=== PATIENT | female | born 1995 | race Caucasian/White ===

== ENCOUNTER 2016-07-09 14:03 | Observation (INO) ==
--- NOTE | 2016-07-09 15:26 | OB/GYN History & Physical ---
Date of Encounter: 07/09/16 Time of Encounter: 15:19 Assessment and Plan (1) with 39 completed weeks gestation Current visit: Yes Status: Acute at 39w 2d gestation. Complicated by choroid plexus cyst per ultrasound which self-resolved. 1. concerns for labor Discussed with the patient the utility of timing contractions. 14:21 initial nursing cervical exam - Cervix closed, thick, firm 15:50 nursing cervical re-examination - Cervix closed, thick, firm; no change. Patient ambulated for 1 hr. 16:50 nursing cervical re-examination - Cervix closed, thick, firm; no change. Patient discharged home. Patient's next appointment is Mon (4 days) with Dr. Duff. 2. nausea No nausea unless she feels the contractions; i.e. no nausea at baseline and no nausea with contractions she does not feel (as evidenced by the monitor). Patient has not been nausea throughout her stay. She is able to maintain PO intake without difficulty; no indication at this time for outpatient antiemetic medications. (2) False labor Current visit: Yes Status: Acute as above History of Present Illness Chief complaint: Labor concern HPI: Ms. Mc is a 21 year old female presents from home with concerns of labor contractions. Onset 02:00-03:00. Patient is at 39w 2d. She has not timed the duration or frequency of her contractions but notes her abdomen get hard at random times during which she has nausea. No vaginal discharge/fluid/ bleeding. Patient also notes back pain, located across her lumber back, intermittent and not always coincident with the contractions she feels, she has not taken acetaminophen, improved with heated car seat. Patient lives 40-45 min from the hospital. She hx: OB: Dr. Duff Last visit 3 days ago - no cervical dilation. hx of choroid plexus cyst reportedly spontaneously resolved. Blood type: A- GBS (-) HbSAg (-) @ 01/01/16 HIV (-) T. Pallidum Ab (-) Rubella IgG (+) Varicella IgG (-) CF 165 (-) N. Gonorrhoeas DNA (-) C. Trachomatis DNA (-) Past Med Surg Social Fam HX - Past Medical History Medical history: no medical history Psychiatric history: anxiety - Past Surgical History Surgical History: no surgical history - Social History Smoking Status: Never smoker Smokeless Tobacco Status: No Alcohol use: none Drug use: none - Family History Mother Hx Family Cancer: Yes Hx Family Medical Disorders: Yes ("gets blood clots") Obstetrical History - Pregnancies : 1 Para: 0 Term: 0 : 0 Ab's: 0 Livin Medications and Allergies Kzc840/Iron Fumarate/FA/Dss [ 19 Tablet] 1 each PO DAILY 07/09/16 [ History] Allergies No Known Allergies Allergy (Verified 02/11/16 16:38) Review of System OB - Constitutional Constitutional ROS IM: headache(s), no anorexia, no fatigue, no fever(s), no lethargy, no malaise, no weakness - Nose, mouth, and throat Nose, mouth and throat: no dizziness - Cardiovascular Cardiovascular: no chest pain, no leg edema - Respiratory Respiratory: no cough, no dyspnea - Gastrointestinal Gastrointestinal: abdominal pain (with contractions), change in stool character (loose bowels), nausea, no belching, no bloating, no dyspepsia, no vomiting - Genitourinary Genitourinary: no difficulty urinating, no dysuria, no pelvic pain, no vaginal discharge - Muscloskeletal Musculoskeletal: myalgias (lumbar), no muscle weakness Exam - Constitutional Constitutional: well developed, well nourished, no acute distress, average body habitus - HEENT HEENT: Normocephaly, Mucus Membranes Moist - Neck Neck exam: normal inspection, trachea midline - Lungs Respiratory exam: CTAB - Cardiovascular Cardiovascular exam: RRR, +S1, +S2 - Abdomen Abdomen: Present: bowel sounds normal, gravid, non tender - Extremities Extremities exam: normal capillary refill, pedal edema (1+) - Comments Comments: MSK: no tenderness to palpation along patient's lumbar spine, lumbar paraspinal muscles, or bilateral iliocostalis muscles. No CVA tenderness. No flank tenderness. Results All other labs normal. - VTE Reasons for not Prescribing Prophylaxis: Treatment not Indicated - Low risk for VTE
[2016-07-09 15:36] LABS: Bilirubin,Urine Negative (Negative); Blood,Urine Negative (Negative); Clarity,Urine Clear (Clear); Color,Urine Yellow (Yellow); Glucose,Urine (UA) Normal (Normal); Ketones,Urine Negative (Negative); Leukocyte Esterase,Urine Negative (Negative); Nitrite,Urine Negative (Negative); PH,Urine 6.5 pH Units (5.0-8.0); Protein,Urine Negative (Neg-Trace); Specific Gravity,Urine 1.012 (1.010-1.025); Urobilinogen,Urine Normal (Normal)
== END 2016-07-09 16:58 | disposition home or self-care (01) ==
LOC: 1NENULAB
PROVIDERS: ADMIT Obstetrics & Gynecology; ATTEND Obstetrics & Gynecology

== ENCOUNTER 2016-07-21 05:55 | Inpatient (IN) ==
[2016-07-21] MEDS ORDERED: Famotidine 20 MG/2 ML VIAL IVP PRN (05:56)
[2016-07-21] MEDS ORDERED: Metoclopramide 10 MG/2 ML VIAL IVP PRN (05:56)
[2016-07-21] MEDS ORDERED: Naloxone 0.4 MG/ML INJ IVP PRN (05:56)
[2016-07-21] MEDS ORDERED: *HR* Nalbuphine 20 MG/ML AMPUL IVP PRN (05:57)
[2016-07-21] MEDS ORDERED: miSOPROStol 100 MCG TABLET PO SCH (06:00)
[2016-07-21] MEDS ORDERED: D5% in 0.45% NACL 1,000 ML IVC SCH (06:00)
[2016-07-21 06:26] LABS: Basophils % 0.5 %; Eosinophils % 0.2 %; Hematocrit 40.9 % (35.3-44.9); Hemoglobin 13.9 g/dL (11.5-15.4); Immature Granulocytes % 1.6 % (0-4); Lymphocytes # 1.6 K/mcL (0.6-4.6); Lymphocytes % 18.7 %; Mean Corpuscular Hemoglobin 33.3 pg (28.0-33.3); Mean Corpuscular Volume 97.8 fL (83.0-100.0); Mean Platelet Volume 10.2 fL (9.4-12.4); Monocytes # 0.9 K/mcL (0.0-1.3); Monocytes % 9.9 %; Neutrophils # 6.1 K/mcL (1.6-8.9); Platelet Count 185 K/mcL (140-400); Red Blood Count 4.18 M/mcL (3.82-4.97); Segmented Neutrophils % 69.1 %
--- NOTE | 2016-07-21 08:11 | OB Labor Progress Note ---
Date of Encounter: 07/21/16 Time of Encounter: 08:08 Labor Progress Note - Subjective Subjective: Patient resting well in bed after receiving cytotec by RN for induction. - Cervix Cervix: 2/70/-2 soft midposition - Heart Tones Heart Tones: 140's moderate variability with 15x15 accels - [place]: contractions every 3-5 minutes lasting 45 to 100 seconds. Moderate to palpation ; uterus palpates soft between contractions. - Interventions Interventions: Carter catheter placed with 30cc sterile water. Patient tolerated well. - Plan Plan: Continue expectant management Plan for vaginal delivery Patient plans for epidural for pain management POC discussed with Dr Duff.
--- NOTE | 2016-07-21 08:20 | OB/GYN History & Physical ---
Date of Encounter: 07/21/16 Time of Encounter: 08:14 Assessment and Plan (1) 41 weeks gestation of Current visit: Yes Status: Acute Admit to labor and delivery Cervical mclean and cytotec induction Routine labor management GBS negative Rh negative Plan for epidural for pain control Vaginal delivery expected POC discussed with Dr Duff. History of Present Illness Chief complaint: Induction of labor HPI: Ms. Mc is a 21 year old female that arrives to labor and delivery for scheduled induction. She is 41 weeks gestation with an insignificant antepartum period. Her blood type is A negative, and she is GBS negative, Rubella immune, Hep B nonreactive, and varicella nonimmune. She is planning on bottle feeding. She began having contractions yesterday and was seen at an ER in [place], [place]. She was transferred to an L&D unit in [place], [place] and discharged to deliver home. She has been irene mildly overnight and arrived here this morning for induction. She is to be admitted. Vaginal delivery is expected. Past Med Surg Social Fam HX - Past Medical History Medical history: no medical history Psychiatric history: anxiety - Past Surgical History Surgical History: no surgical history - Social History Smoking Status: Never smoker Smokeless Tobacco Status: No Alcohol use: none Drug use: none - Family History Mother Adopted: No Family Member Ethnicity: Non- Living Status: Still Living Hx Family Cancer: Yes Hx Family Medical Disorders: Yes (DVT) Obstetrical History - Pregnancies : 1 Para: 0 Term: 0 : 0 Ab's: 0 Livin - History/Complications History/Complications: Antepartum period insignificant. Medications and Allergies [id number]/Iron Fumarate/FA/Dss [ 19 Tablet] 1 each PO DAILY 07/09/16 [ History] Allergies No Known Allergies Allergy (Verified 07/21/16 06:18) Review of System OB All systems PM: reviewed and no additional remarkable complaints except as stated Exam - Constitutional Constitutional: well developed, well nourished, no acute distress, average body habitus - HEENT HEENT: Normocephaly, Mucus Membranes Moist - Neck Neck exam: full ROM, normal inspection - Lungs Respiratory exam: CTAB - Cardiovascular Cardiovascular exam: RRR, +S1, +S2 - Breasts Breast: bilateral: normal - Abdomen Abdomen: Present: bowel sounds normal, gravid, non tender - Extremities Extremities exam: full ROM, normal capillary refill, normal inspection, radial pulses palpable and symetrical Deep Tendon Reflex Grade: 2+ Normal - Vulva Vulva: bilateral: normal - Vagina Vagina: Present: normal moisture - Cervix Dilation: 2 Effacement: 70 Station: -2 - Uterus Uterus exam: Present: normal size, normal contour. Absent: tender - Anus/Rectum Anus/Rectum: Present: normal perianal skin Results Result Diagrams: 07/21/16 06:15 All other labs normal. - VTE Reasons for not Prescribing Prophylaxis: Treatment not Indicated - Low risk for VTE
--- NOTE | 2016-07-21 09:30 | OB Labor Progress Note ---
Date of Encounter: 07/21/16 Time of Encounter: 09:25 Labor Progress Note - Subjective Subjective: Patient resting comfortably in bed. EFM and TOCO on and tracing - Cervix Cervix: 3-4/70/-2 midposition, soft - Heart Tones Heart Tones: 135 moderate variability with 15x15 accels - [place]: contractions every 2-6 minutes; contractions palpate moderate and uterus is soft between contractions. - Interventions Interventions: Discussed risks and benefits of epidural, pitocin, and AROM. Patient declines all at this time. - Plan Plan: Continue routine routine management Plan for vaginal delivery POC discussed with Dr Duff Encouraged use of birthing ball and walking. Patient declines pitocin, epidural, and AROM at this time; Patient to alert nurse after she has discussed and considered options.
--- NOTE | 2016-07-21 12:45 | Anesthesia Evaluation PreOp ---
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: Denies Any Significant HX Other Medical History: Denies Any Significant HX Anesthesia History: No Prior Anesthetic Complications (denies family h/o anesthesia complications), Past Anesthesia (never had any procedure that required GA, RA, or NA) : Yes Test: Positive Alcohol Use: none Drug use: none Medications and Allergies Boz945/Iron Fumarate/FA/Dss [ 19 Tablet] 1 each PO DAILY 07/09/16 [ History] Allergies No Known Allergies Allergy (Verified 07/21/16 06:18) - Meds/Allergy Pre-op Review Medications Reviewed: Yes Allergies Reviewed: Yes Beta Blockers on Current Med List: No Anesthesia Results - Labs 07/21/16 06:15 Anesthesia Exam 135/79, HR 102, RR 18 Height: 1.55 Weight: 75kg NPO (# of Hours): >8hrs (solids) Pain Scale: 3 Pain Scale Used: Numeric (1 - 10) - HEENT Pupil (Motor): Pupils equal Mallampati: I Teeth: Normal Oral Opening: Greater than 3 - NUCLEAR WORKER TECHNICIAN LOC: Oriented NUCLEAR WORKER TECHNICIAN Motor: Normal RUE, Normal LUE, Normal RLE, Normal LLE, Normal Face NUCLEAR WORKER TECHNICIAN Sensory: Normal: RUE, LUE, RLE, LLE, Face - Cardiac Rhythm: Regular Murmur: None - Pulmonary Breath Sounds: bilateral Clear Respiratory Effort: Symmetrical Anesthesia Assess/Plan ASA Score: 2 Modified Jackie Scale for Level of Consciousness: Cooperative, oriented, and tranquil Anesthetic Plan: Regional Autologous Blood: No Monitoring Plan: Standard Monitors Recovery Plan: Other
[2016-07-21] MEDS ORDERED: *HR* FentaNYL (PF) 100 MCG/2 ML VIAL EP ONE (12:48)
[2016-07-21] MEDS ORDERED: Bupivacaine-MPF 0.25% 10 ML VIAL EP ONE (12:48)
[2016-07-21] MEDS ORDERED: *HR* FentaNYL (PF) 100 MCG/2 ML VIAL ONE (12:52)
[2016-07-21] MEDS ORDERED: Bupivacaine-MPF 0.25% 10 ML VIAL ONE (12:52)
[2016-07-21] MEDS ORDERED: Epidural Premix (fent/bupiv) 110 ML EP SCH (13:00)
--- NOTE | 2016-07-21 13:01 | OB Labor Progress Note ---
Date of Encounter: 07/21/16 Time of Encounter: 12:58 Labor Progress Note - Subjective Subjective: Patient resting comfortably in bed. - Cervix Cervix: 3-4/70/-2 midposition soft - Heart Tones Heart Tones: 150's moderate variability 15x15 accels - [place]: every 1.5-5 minutes. Uterus palpates moderate with contractions and soft in between contractions. - Plan Plan: Continue with routine management Expect vaginal delivery Discussed induction options with patient: AROM before epidural if desired, AROM after epidural if desired, IV pitocin titration, cytotec if contractions space out, or watch and wait. Patient elects to watch and wait. Encouraged walking and use of birthing ball. POC discussed with Dr Duff.
[2016-07-21] MEDS ORDERED: Ringers Solution, Lactated 1,000 ML ONE ×2 (14:40→22:14)
--- NOTE | 2016-07-21 16:22 | OB Labor Progress Note ---
Date of Encounter: 07/21/16 Time of Encounter: 16:19 Labor Progress Note - Subjective Subjective: Patient resting in bed. States that she is beginning to feel contractions and that they are uncomfortable. - Cervix Cervix: 470/-1 soft and midposition. Cervix has increased in softness and moved more anterior from previous check. - Heart Tones Heart Tones: 130's moderate variability with 15x15 accels and no decels - [place]: Contractions every 3-4 minutes and 60 seconds in length. Moderate to palpation. Uterus palpates soft between contractions. - Plan Plan: Continue expectant management Expect vaginal delivery Patient planning on epidural if pain becomes uncontrolled Discussed continued induction options with patient; patient elects pitocin per CNM's orders POC discussed with Dr Duff.
[2016-07-21] MEDS ORDERED: Oxytocin 20 units/ LR 1000 mL 20 UNIT/1,000 ML BAG IVC SCH (16:30)
[2016-07-21] MEDS ORDERED: Epidural Premix (fent/bupiv) 110 ML EP ONE (23:46)
--- NOTE | 2016-07-22 00:14 | Anesthesia Procedures ---
Date of Encounter: 07/21/16 Time of Encounter: 23:47 Procedures: Anesthesia - Epidural/Spinal Patient ID/Chart reviewed: Yes Patient examined: Yes OB Eval: Gestational age: 41 weeks OB Eval: : 2 OB Eval: Hx Para: 0 OB Eval: Dilated at (cm): 6 OB Eval: Contractions: Non-stressed pattern Consent Obtained: Yes Supplemental Oxygen: None/Room Air Site Prep: Aseptic Technique, Sterile prep and drape, Povidone-Iodine 1% Patient position: upright Local Anesthetic: Lidocaine 1% Amount of Local Anesthetic used: 3 Touhy Needle Gauge: 18 Touhy Needle Depth (cm): 5 Catheter Depth at Skin (cm): 12 Test Dose (1.5% Lido + Epi): Volume given (mls): 5 (given in 2 equally divided doses over a period of 5 min) Test Dose Result: Negative Loading Dose: 0.25% Marcaine (mls): 5 Loading Dose: Fentanyl (mcg): 100 Loading Dose Administered: Thru Catheter Infusion Med: 0.125% Bupivacaine w/ 2 mcg/ml Fentanyl Infusion Rate (mls/hr): [address]: Tegaderm, Tape Interspace Used: L3-L4 Loss of Resistance (RAKAN): Yes Blood: No CSF: No Paresthesia: No Vitals + FHT's: Please see L&D REDDY July' electronic documentation
[2016-07-22] MEDS ORDERED: Ringers Solution, Lactated 1,000 ML ONE ×3 (00:55→05:42)
[2016-07-22] MEDS ORDERED: Ondansetron 4 MG/2 ML VIAL IVP PRN ×2 (02:39→13:44)
[2016-07-22] MEDS ORDERED: Epidural Premix (fent/bupiv) 110 ML EP ONE (06:03)
[2016-07-22] MEDS ORDERED: *HR* Ropivacaine/PF 0.2% 10 ML AMPUL ONE (08:15)
--- NOTE | 2016-07-22 08:51 | Anesthesia Progress Note ---
Date of Encounter: 07/21/16 Time of Encounter: 08:15 Anesthesia Note - Note Note: 07/22/16 08:49 called to LDR12 for c/o pain 01/31 with contractions to low abd. and hips and back. Has only anterior lip of cervix remaining. Epidural functioning and has not migrated. Aspiration negative gardner CSF or blood. Injected 10 ml 0.2% ropivacaine in 3 divided doses. Patient tolerated well and maternal VS and FHTs remained stable throughout.
[2016-07-22] MEDS ORDERED: Prenatal Vit/FA 1 EACH TABLET PO SCH (09:00)
[2016-07-22] MEDS ORDERED: miSOPROStol 100 MCG TABLET PO STA ×2 (10:46→15:51)
[2016-07-22] MEDS ORDERED: Ibuprofen 600 MG TABLET PO PRN (11:06)
[2016-07-22] MEDS ORDERED: Rho Immune Globulin 1,500 UNIT SYRINGE IM PRN ×2 (11:06→13:44)
[2016-07-22] MEDS ORDERED: Acetaminophen 325 MG TABLET PO PRN ×2 (11:06→13:44)
--- NOTE | 2016-07-22 11:10 | OB/GYN Procedure Note ---
Delivery - Delivery Date: 07/22/16 Provider: Chasidy Calabrese Intrapartum events: none Delivery induction: oxytocin Delivery monitor: external FHT, external uterine, internal uterine Anesthesia: epidural Estimated Blood Loss: 750 (Uterine atony) - Infant (s) Infant A Infant Delivery Date: 07/22/16 Infant Delivery Time: 10:31 Presentation: vertex Position: THOM Route of delivery: Gender: Female Viability: Viable Pounds: 8 Ounces: 2 at 1 minute: 8 at 5 mins: 9 Shoulder Dystocia: not encountered Specimens collected: cord blood Placenta: spontaneous, uterine exploration (No retained products of conception) Cord: nuchal cord (x2), 3 umbilical vessels, nuchal reduced - Repair Episiotomy: none Laceration Description: Vaginal (extend to introitus) - Complications Delivery complications: uterine atony Delivery comments: Patient complete and pushing with epidural anesthesia with spontaneous vaginal delivery of a live female in THOM position weighing 8 lbs. 2 oz. and Apgars of 8 at 1 minute and 9 at 5 minutes. Nuchal cord x2 was reduced on the perineum. was placed on the maternal abdomen. Cord was clamped and cut after pulsation ceased. Cord blood was obtained. Placenta was delivered spontaneous and intact. There was a vaginal laceration approximately 3 cm in length extending to the introitus which was repaired with 3-0 Vicryl in a running locking fashion and then 4-0 Vicryl to reinforce the perineum. The uterus was boggy with aggressive bleeding. The uterus was explored and there were no retained products of conception. Bimanual massage was performed with IV Pitocin running without significant relief. The patient was given 400 mcg of by mouth Cytotec and 400 mcg of rectal Cytotec. Good response achieved. Estimated blood loss 750 mL. - Disposition Mom disposition: stable in LDR disposition: stable in LDR
[2016-07-22] MEDS ORDERED: Oxytocin 20 units/ LR 1000 mL 20 UNIT/1,000 ML BAG IVC SCH ×2 (11:15→13:44)
[2016-07-22 11:27] LABS: Basophils % 0.1 %; Hemoglobin 12.8 g/dL (11.5-15.4); Immature Granulocytes % 0.6 % (0-4); Lymphocytes # 0.8 K/mcL (0.6-4.6); Lymphocytes % 3.9 %; Mean Corpuscular HGB Conc 34.6 g/dL (31.6-35.5); Mean Corpuscular Volume 98.4 fL (83.0-100.0); Mean Platelet Volume 10.6 fL (9.4-12.4); Monocytes # 1.3 K/mcL (0.0-1.3); Monocytes % 6.1 %; Platelet Count 173 K/mcL (140-400); Red Blood Count 3.76 M/mcL (3.82-4.97); Segmented Neutrophils % 89.3 %
[2016-07-22 11:29] LABS: Neutrophils # 18.8 K/mcL (1.6-8.9)
[2016-07-22] MEDS ORDERED: miSOPROStol 100 MCG TABLET PO ONE ×2 (13:00→13:44)
[2016-07-22] MEDS: Ibuprofen 600 MG TABLET PO PRN (14:11)
[2016-07-23 05:56] LABS: Basophils # 0.1 K/mcL (0.0-0.2); Basophils % 0.3 %; Eosinophils % 0.1 %; Immature Granulocytes % 0.5 % (0-4); Lymphocytes # 2.1 K/mcL (0.6-4.6); Lymphocytes % 11.7 %; Mean Corpuscular HGB Conc 34.5 g/dL (31.6-35.5); Mean Corpuscular Hemoglobin 34.2 pg (28.0-33.3); Mean Corpuscular Volume 99.3 fL (83.0-100.0); Mean Platelet Volume 10.9 fL (9.4-12.4); Monocytes # 1.1 K/mcL (0.0-1.3); Neutrophils # 14.4 K/mcL (1.6-8.9); Platelet Count 153 K/mcL (140-400); Red Blood Count 2.92 M/mcL (3.82-4.97); Red Cell Distribution Width 12.3 % (11.5-14.5); Segmented Neutrophils % 81.4 %
[2016-07-23] MEDS: Ibuprofen 600 MG TABLET PO PRN (06:14)
--- NOTE | 2016-07-23 08:42 | Discharge Summary ---
Date of Encounter: 07/23/16 Time of Encounter: 08:42 - Discharge Diagnosis (1) (normal spontaneous vaginal delivery) Priority: Primary Status: Acute - Discharge Medications Prescriptions: Ibuprofen [Motrin] 600 mg PO Q6HR PRN #40 tablet PRN Reason: Cramping Home Medications: Eia902/Iron Fumarate/FA/Dss [ 19 Tablet] 1 each PO DAILY 07/09/16 [ History] Ibuprofen [Motrin] 600 mg PO Q6HR PRN #40 tablet 07/23/16 [Rx] Allergies/Adverse Reactions: Allergies No Known Allergies Allergy (Verified 07/21/16 06:18) Data Procedures and tests throughout hospitalization: Laboratory Tests 07/21/16 07/22/16 07/22/16 06:15 11:10 11:10 WBC 8.8 21.0 H D RBC 4.18 3.76 L Hgb 13.9 12.8 Hct 40.9 37.0 MCV 97.8 98.4 MCH 33.3 34.0 H MCHC 34.0 34.6 RDW 12.0 12.0 Plt Count 185 173 MPV 10.2 10.6 Immature Gran % 1.6 0.6 Seg Neutrophils % 69.1 89.3 Lymphocytes % 18.7 3.9 Monocytes % 9.9 6.1 Eosinophils % 0.2 0.0 Basophils % 0.5 0.1 Neutrophils # 6.1 18.8 H Lymphocytes # 1.6 0.8 Monocytes # 0.9 1.3 Eosinophils # 0.0 0.0 Basophils # 0.0 0.0 Screen NEGATIVE Baby's Blood Type A RH POSITIVE Mother's Blood Type A RH NEGATIVE Rhogam Indicated YES Rhogam Req for Mother 1 07/23/16 05:33 WBC 17.6 H RBC 2.92 L Hgb 10.0 L D Hct 29.0 L MCV 99.3 MCH 34.2 H MCHC 34.5 RDW 12.3 Plt Count 153 MPV 10.9 Immature Gran % 0.5 Seg Neutrophils % 81.4 Lymphocytes % 11.7 Monocytes % 6.0 Eosinophils % 0.1 Basophils % 0.3 Neutrophils # 14.4 H Lymphocytes # 2.1 Monocytes # 1.1 Eosinophils # 0.0 Basophils # 0.1 Screen Baby's Blood Type Mother's Blood Type Rhogam Indicated Rhogam Req for Mother Labs on day of discharge: Labs from last 24 hours 07/23/16 07/22/16 07/22/16 05:33 11:10 11:10 WBC 17.6 H 21.0 H D RBC 2.92 L 3.76 L Hgb 10.0 L D 12.8 Hct 29.0 L 37.0 MCV 99.3 98.4 MCH 34.2 H 34.0 H MCHC 34.5 34.6 RDW 12.3 12.0 Plt Count 153 173 MPV 10.9 10.6 Immature Gran % 0.5 0.6 Seg Neutrophils % 81.4 89.3 Lymphocytes % 11.7 3.9 Monocytes % 6.0 6.1 Eosinophils % 0.1 0.0 Basophils % 0.3 0.1 Neutrophils # 14.4 H 18.8 H Lymphocytes # 2.1 0.8 Monocytes # 1.1 1.3 Eosinophils # 0.0 0.0 Basophils # 0.1 0.0 Screen NEGATIVE Baby's Blood Type A RH POSITIVE Mother's Blood Type A RH NEGATIVE Rhogam Indicated YES Rhogam Req for Mother 1 - Impressions Doing ok, appropriate lochia, c/o urinary incontinence. 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 Attestation: Total time spent providing and/or coordinating discharge services: Exam - Constitutional Vitals: Temp Pulse Resp BP Pulse Ox 98 F 91 20 97/61 99 07/23/16 07:47 07/23/16 07:47 07/23/16 07:47 07/23/16 07:47 07/23/16 07:47 General appearance IM: A&O X 3 - Respiratory Respiratory exam: Present: CTAB - Cardiovascular Cardiovascular exam IM: Present: RRR - GI/Abdominal GI/Abdominal exam IM: normal bowel sounds - Uterus Position: 2 Fingers Below Umbilicus - Extremities Exam Extremities exam IM: Present: full ROM - Neurological Exam Neurological exam: oriented X3 - VTE Reasons for not Prescribing Prophylaxis: Treatment not Indicated - Low risk for VTE
[2016-07-23] MEDS ORDERED: Prenatal Vit/FA 1 EACH TABLET PO SCH ×2 (09:00)
[2016-07-23 16:28] VITALS: BP 109/66
== END 2016-07-23 16:45 | disposition home or self-care (01) | DRG 542 ==
LOC: 1NENULAB 05:55 → 1NENUOBS 07-22 13:43

== ENCOUNTER → 2017-12-04 20:20 | Observation (INO) ==
[2017-12-04 18:44] LABS: Amphetamine Screen,Urine Negative ng/mL (Cutoff=1000); Barbiturate Screen,Urine Negative ng/mL (Cutoff=200); Benzodiazepines Screen,Urine Negative ng/mL (Cutoff=200); Cannabinoid Screen,Urine Negative ng/mL (Cutoff = 50); Cocaine Screen,Urine Negative ng/mL (Cutoff= 300); Opiate Screen,Urine Negative ng/mL (Cutoff=300); Phencyclidine Screen,Urine Negative ng/mL (Cutoff=25)
--- NOTE | 2017-12-04 19:23 | OB/GYN Progress Note ---
Date of Encounter: 12/04/17 Time of Encounter: 19:19 - Assessment and Plan (1) 27 weeks gestation of Current Visit: Yes Status: Acute KB negative NST - reactive Discharge home with PTL and bleeding precautions along with kick counts Follow up with routine care and PRN. (2) Abdominal trauma Current Visit: Yes Status: Acute Qualifiers: Encounter type: initial encounter Qualified Code(s): S39.91XA - Unspecified injury of abdomen, initial encounter Subjective - Subjective Principal diagnosis: Abdominal trauma Interval history: Ms Mc is a at 27 weeks 0 days that presents to triage from the office for monitoring and a KB. Her daughter hit her hard in the abdomen last night and her placenta is located anteriorly. Her blood type is A-. She states positive movement. She denies cramping, contractions, vaginal bleeding, vaginal discharge, headache, vision changes, and epigastric pain. Antepartum ROS: movement normal, no vaginal bleeding, no contractions Objective - Vital Signs Vital Signs: Intake and Output 12/04/17 12/04/17 12/04/17 07:59 15:59 23:59 Other: Weight 73.028 kg Patient Weight 12/04/17 23:59 Weight 73.028 kg - Exam FHR: auscultation normal, category 1 FHR comments: FHTs 150 baseline Abdomen: Present: normal appearance, soft, gravid Uterus: Present: normal. Absent: firm, tenderness
== END | disposition home or self-care (01) ==
LOC: 1NENULAB
PROVIDERS: ADMIT Advanced Practice Midwife; ATTEND Advanced Practice Midwife

== ENCOUNTER 2018-02-22 08:27 | Observation (INO) ==
--- NOTE | 2018-02-22 09:22 | OB/GYN Progress Note ---
Date of Encounter: 02/22/18 Time of Encounter: 09:19 - Assessment and Plan (1) 38 weeks gestation of Current Visit: Yes Status: Acute Encouraged patient to restart zoloft and follow up with Dr Duff Rx for vistaril PRN anxiety NST reactive Discharge home with labor precautions and change in mental status precautions Follow up with Dr duff as scheduled and PRN (2) Anxiety Current Visit: Yes Status: Acute (3) NST (non-stress test) reactive Current Visit: Yes Status: Acute Subjective - Subjective Principal diagnosis: Difficulty catching breath Interval history: Ms Mc is a at 38 weeks and 3 days that presents to triage with c/o difficulty catching her breath. She states this is not the first time this has happened during her . She does have a significant history of anxiety and depression with this and stopped taking her zoloft roughly one week ago per her . She states positive movement. She denies headaches, vision changes, epigastric pain, leaking of fluid/vaginal bleeding, and regular contractions. She is seen for her care by Dr Duff. She denies SI/HI and making suicide plans. She states her anxiety has worsened significantly since stopping her zoloft which she states she stopped due to not wanting her baby to go through withdraw after delivery; discussed pros/cons of zoloft use in . Antepartum ROS: movement normal, no loss of fluid, no vaginal bleeding, no contractions Objective - Exam FHR: auscultation normal, category 1 FHR comments: Irregular contractions; category I tracing Baseline 140 with 15x15 accels moderate variability and no decels. Auscultation: bilateral: normal Abdomen: Present: normal appearance, soft, gravid Uterus: Present: normal. Absent: firm, tenderness
[2018-02-22 10:07] LABS: Amphetamine Screen,Urine Negative ng/mL (Cutoff=1000); Barbiturate Screen,Urine Negative ng/mL (Cutoff=200); Benzodiazepines Screen,Urine Negative ng/mL (Cutoff=200); Cannabinoid Screen,Urine Negative ng/mL (Cutoff = 50); Cocaine Screen,Urine Negative ng/mL (Cutoff= 300); Opiate Screen,Urine Negative ng/mL (Cutoff=300); Phencyclidine Screen,Urine Negative ng/mL (Cutoff=25)
== END 2018-02-22 10:00 | disposition home or self-care (01) ==
LOC: 1NENULAB
PROVIDERS: ADMIT Advanced Practice Midwife; ATTEND Advanced Practice Midwife

== ENCOUNTER 2018-03-02 09:41 | Inpatient (IN) ==
[2018-03-02] MEDS ORDERED: Famotidine 20 MG/2 ML VIAL IVP PRN (10:14)
[2018-03-02] MEDS ORDERED: Ondansetron 4 MG/2 ML VIAL IVP PRN (10:14)
[2018-03-02] MEDS ORDERED: *HR* Nalbuphine 10 MG/ML AMPUL IVP PRN (10:14)
[2018-03-02] MEDS ORDERED: Naloxone 0.4 MG/ML INJ IVP PRN (10:14)
[2018-03-02] MEDS ORDERED: D5% in 0.45% NACL 1,000 ML IVC SCH (10:30)
[2018-03-02 10:55] LABS: Basophils % 0.3 %; Eosinophils # 0.1 K/mcL (0.0-0.6); Eosinophils % 0.5 %; Hemoglobin 12.8 g/dL (11.5-15.4); Immature Granulocytes % 0.8 % (0-4); Lymphocytes # 2.2 K/mcL (0.6-4.6); Lymphocytes % 19.6 %; Mean Corpuscular HGB Conc 33.7 g/dL (31.6-35.5); Mean Corpuscular Hemoglobin 32.2 pg (28.0-33.3); Mean Corpuscular Volume 95.5 fL (83.0-100.0); Mean Platelet Volume 10.5 fL (9.4-12.4); Monocytes # 0.6 K/mcL (0.0-1.3); Monocytes % 5.1 %; Neutrophils # 8.2 K/mcL (1.6-8.9); Platelet Count 190 K/mcL (140-400); Red Blood Count 3.98 M/mcL (3.82-4.97); Red Cell Distribution Width 12.1 % (11.5-14.5); Segmented Neutrophils % 73.7 %
[2018-03-02] MEDS ORDERED: Ringers Solution, Lactated 1,000 ML ONE (11:35)
[2018-03-02] MEDS ORDERED: miSOPROStol 100 MCG TABLET PO ONE (12:00)
[2018-03-02 12:54] LABS: Amphetamine Screen,Urine Negative ng/mL (Cutoff=1000); Barbiturate Screen,Urine Negative ng/mL (Cutoff=200); Benzodiazepines Screen,Urine Negative ng/mL (Cutoff=200); Cannabinoid Screen,Urine Negative ng/mL (Cutoff = 50); Cocaine Screen,Urine Negative ng/mL (Cutoff= 300); Opiate Screen,Urine Negative ng/mL (Cutoff=300); Phencyclidine Screen,Urine Negative ng/mL (Cutoff=25)
--- NOTE | 2018-03-02 14:53 | OB Labor Progress Note ---
Date of Encounter: 03/02/18 Time of Encounter: 14:25 Labor Progress Note - Subjective Subjective: Patient resting in bed without complaint at this time. Undecided about epidural - Vital Signs Vital Signs: WNL Afebrile - Cervix Cervix: 4/80/-2 - Heart Tones Heart Tones: 140 bpm, moderate variability, +15x15 accels, no decels. - [place]: 2-3 minutes - Interventions Interventions: SVE AROM for moderate amount clear fluid. - Plan Plan: Continue labor induction Begin Pitocin if needed Patient may have IV pain medication and/or epidural if when she desires. Anticipate
[2018-03-02] MEDS ORDERED: Oxytocin 20 units/ LR 1000 mL 20 UNIT/1,000 ML BAG IVC SCH ×2 (15:00→22:20)
[2018-03-02] MEDS ORDERED: Ringers Solution, Lactated 1,000 ML IVC SCH (15:00)
--- NOTE | 2018-03-02 15:33 | OB/GYN History & Physical ---
Date of Encounter: 03/02/18 Time of Encounter: 15:19 Assessment and Plan (1) with 39 completed weeks gestation Current visit: Yes Status: Acute 22 y/o at 39 weeks 4 days gestation Admit to labor and delivery GBS negative Varicella non immune Blood type A- Epidural if desired for pain control AROM Augmentation if needed Anticipate vaginal delivery Dr. Abrams tool liaison. (2) NST (non-stress test) reactive Current visit: Yes Status: Acute NST reactive FHR 135 Moderate variability, +15 by 15 accelerations No decels History of Present Illness Chief complaint: Induction of labor at 39 weeks and 4 days gestation HPI: Ms. Mc is a 22 year old female presenting for induction of labor. Follows with Dr. Duff. She is and currently at 39 weeks and 4 days gestational age. She has had an unremarkable course. Her previous labor and delivery with last was complicated by uterine atony and hemorrhage that responded to cytotec. Past medical history of major depression currently on zoloft. She admits to good movement. She denies leakage of fluid, vaginal bleeding or contractions. Denies headache, dizziness, vision changes, fever, chills, chest pain, shortness of breath, epigastric pain, RUQ pain, dysuria, edema or calf pain. Blood type A- GBS negative HIV negative T pallidum negative Rubella immune Varicella nonimmune Hepatitis B surface antigen unknown, will draw during this admission Past Med Surg Social Fam HX - Past Medical History Medical history: no medical history Additional medical history: subchorionic hematoma, small choroid plexus ( resolved 04/14), very faint echogenic focus left ventricle Psychiatric history: anxiety, depression (on zoloft) - Past Surgical History Surgical History: no surgical history - Social History Smoking Status: Never smoker Smokeless Tobacco Status: No Alcohol use: none Drug use: none Recent Out of Country Travel Within the Last 8 Weeks: No Exposure or Possible Exposure to Illness During Travel: No - Family History Mother Adopted: No Family Member Ethnicity: Non- Living Status: Still Living Hx Family Cardiac Disorders: No Hx Family Respiratory Disorders: No Hx Family Cancer: Yes (cervical) Hx Family GI Disorders: No Hx Family Endocrine Disorder: No Hx Family Neuromuscular Disorders: No Hx Family Neurologic Disorders: No Hx Family HEENT Disorders: No Hx Family Autoimmune Disorders: No Obstetrical History - Pregnancies : 3 Para: 1 Term: 1 : 0 Ab's: 1 Livin - History/Complications History/Complications: 1 had spontaneous 2 had complicated by uterine atony with hemorrhage that responded to cytotec Medications and Allergies Sertraline [Zoloft] 50 mg PO DAILY 03/02/18 [History] Allergy/AdvReac Type Severity Reaction Status Date / Time No Known Allergies Allergy Verified 07/21/16 06:18 Review of System OB All systems PM: reviewed and no additional remarkable complaints except as stated Exam - Constitutional Constitutional: well developed, well nourished, no acute distress, average body habitus - HEENT HEENT: Normocephaly, Mucus Membranes Moist - Neck Neck exam: trachea midline - Lungs Respiratory exam: CTAB - Cardiovascular Cardiovascular exam: RRR, +S1, +S2 - Abdomen Abdomen: Present: bowel sounds normal, gravid, non tender - Extremities Extremities exam: normal inspection, pedal edema Deep Tendon Reflex Grade: 2+ Normal - Vagina Vagina: Present: normal moisture - Cervix Dilation: 4 Effacement: 80 Station: -2 - Uterus Uterus exam: Present: normal size, normal contour Results Result Diagrams: 03/02/18 10:46 All other labs normal. - VTE Reasons for not Prescribing Prophylaxis: Treatment not Indicated - Low risk for VTE
[2018-03-02] MEDS ORDERED: EPHEDrine 50 MG/ML VIAL IVP PRN (16:26)
[2018-03-02] MEDS ORDERED: Ringers Solution, Lactated 500 ML IVC ONE (16:26)
[2018-03-02] MEDS ORDERED: Epidural Premix (fent/bupiv) 110 ML EP SCH (16:30)
[2018-03-02] MEDS ORDERED: Lidocaine -MPF 1% 5 ML AMPUL ONE (16:58)
--- NOTE | 2018-03-02 17:25 | Anesthesia Evaluation PreOp ---
Date of Encounter: 03/02/18 Time of Encounter: 17:24 - Past History Planned Operation: STEVEN Cardiac History: Denies any Significant Hx Pulmonary History: Denies Any Significant HX LACE BURN OUT TENDER History: Denies Any Significant HX Other Medical History: Denies Any Significant HX Anesthesia History: No Prior Anesthetic Complications, Past Anesthesia Alcohol Use: none Drug use: none Medications and Allergies Sertraline [Zoloft] 50 mg PO DAILY 03/02/18 [History] Allergy/AdvReac Type Severity Reaction Status Date / Time No Known Allergies Allergy Verified 07/21/16 06:18 - Meds/Allergy Pre-op Review Medications Reviewed: Yes Allergies Reviewed: Yes Beta Blockers on Current Med List: No Anesthesia Results - Labs 03/02/18 10:46 Anesthesia Exam O2 Sat Height 1.55 m Weight 81.8 kg NPO (# of Hours): 4 Pain Scale: 10 Pain Scale Used: Numeric (1 - 10) - HEENT Pupil (Motor): Pupils equal Mallampati: II Teeth: Normal Oral Opening: Greater than 3 - LACE BURN OUT TENDER LOC: Oriented LACE BURN OUT TENDER Motor: Normal RUE, Normal LUE, Normal RLE, Normal LLE, Normal Face LACE BURN OUT TENDER Sensory: Normal: RUE, LUE, RLE, LLE, Face - Cardiac Rhythm: Regular Murmur: None JVD: No Carotid Bruit: No - Pulmonary Breath Sounds: bilateral Clear Respiratory Effort: Symmetrical Anesthesia Assess/Plan ASA Score: 2 Level of consciousness: Cooperative, Oriented Anesthetic Plan: General (plan b), Epidural (plan a) Autologous Blood: Yes Monitoring Plan: Standard Monitors Recovery Plan: PACU
--- NOTE | 2018-03-02 17:27 | Anesthesia Procedures ---
Addendum entered and electronically signed by Jaylan Marcial CRNA 03/03/18 00:19: Delivery Date: 03/02/18 Infant Delivery Time: 19:41 Original Note: Date of Encounter: 03/02/18 Time of Encounter: 17:25 Procedures: Anesthesia - Epidural/Spinal Patient ID/Chart reviewed: Yes Patient examined: Yes OB Eval: Gestational age: 39.4 OB Eval: : 3 OB Eval: Hx Para: 1 OB Eval: Dilated at (cm): 5 OB Eval: Contractions: Non-stressed pattern Consent Obtained: Yes Supplemental Oxygen: None/Room Air Site Prep: Aseptic Technique, Sterile prep and drape, Povidone-Iodine 1% Patient position: upright Local Anesthetic: Lidocaine 1% Amount of Local Anesthetic used: 3 Touhy Needle Gauge: 18 Touhy Needle Depth (cm): 8 Catheter Depth at Skin (cm): 20 Test Dose (1.5% Lido + Epi): Volume given (mls): 5 Test Dose Result: Negative Loading Dose: Other: 10mls of epidural pharm bag premix solution Loading Dose Administered: Thru Catheter Infusion Med: 0.125% Bupivacaine w/ 2 mcg/ml Fentanyl Infusion Rate (mls/hr): 14 ([id number]) Catheter Secured in Place: Tegaderm, Tape Interspace Used: L4-L5 Loss of Resistance (RAKAN): Yes Blood: No CSF: No Paresthesia: No Procedure: pt tolerated procedure well. no complications. vss. fhr stable.
--- NOTE | 2018-03-02 21:17 | OB/GYN Procedure Note ---
Delivery - Delivery Date: 03/02/18 Provider: Eliezer Abrams Intrapartum events: none Delivery induction: AROM Delivery augmentation: pitocin - (s) Infant A Delivery Date: 03/02/18 Infant Delivery Time: 19:41 Presentation: vertex Position: THOM Gender: Female Viability: Viable Weight Gram: 3785 kg at 1 minute: 8 at 5 mins: 9 Shoulder Dystocia: not encountered Specimens collected: cord blood Placenta: spontaneous Cord: 3 umbilical vessels - Repair Laceration Description: Perineal - 2nd Degree - Complications Delivery complications: none - Disposition Mom disposition: stable in LDR [place] disposition: stable in LDR - Comments Comments: Patient is status post normal spontaneous vaginal delivery of liveborn female infant weighing 8 lbs. 6 oz. with Apgars of 8 at 1 minute and 9 at 5 minutes there was a second-degree laceration was repaired with 3-0 Vicryl under epidural anesthesia with contrast delivered normal placenta with three-vessel cord. Estimated blood loss was 100mL. Mother and recovered in labor and delivery room.
[2018-03-02] MEDS ORDERED: Acetaminophen 325 MG TABLET PO PRN (22:20)
[2018-03-02] MEDS ORDERED: Lanolin 7 G OINT...G. TP PRN (22:20)
[2018-03-02] MEDS: Ibuprofen 600 MG TABLET PO PRN (23:09)
[2018-03-02] MEDS: Benzocaine/Menthol 56 GM AEROSOL SPRAY TP PRN (23:10)
--- NOTE | 2018-03-03 08:50 | OB/GYN Progress Note ---
Date of Encounter: 03/03/18 Time of Encounter: 08:47 - Assessment and Plan (1) Vaginal delivery Current Visit: Yes Status: Acute Continue routine care Ice to perineum when necessary Sitz baths when necessary Dermoplast to perineum when necessary Anticipate discharge to home tomorrow (2) Type A blood, Rh negative Current Visit: Yes Status: Acute also Rh-: No rhogam indicated Subjective - Subjective Principal diagnosis: s/p Interval history: Feeling well. Out of bed without dizziness. Some perineal discomfort-using ice pack. Cramping minimal, using ibuprofen. Bottlefeeding every 2-3 hours. Some nipple soreness. Voiding without difficulty. Passing flatus, no BM yet. Tolerating regular diet. Patient reports: appetite normal, voiding normally, pain well controlled, ambulating normally : doing well, bottle feeding Objective - Latest Vital Signs Latest vital signs: Vital Signs Temp Pulse Resp BP Pulse Ox 03/03/18 07:57 97.9 F 77 14 97/54 99 03/03/18 03:00 98.1 F 72 20 99/60 97 03/03/18 00:30 98 F 78 20 108/64 98 03/02/18 23:25 97.8 F 85 16 109/63 97 03/02/18 22:25 97.9 F 75 16 109/59 98 Intake and Output 03/02/18 03/03/18 03/03/18 23:59 07:59 15:59 Intake Total 1000 / 1000 Output Total 800 / 800 1150 / 1150 Balance -800 / -800 -150 / -150 Intake: Oral 0 / 0 Other 1000 / 1000 Output: Urine 800 / 800 1150 / 1150 Other: Weight 80.1 kg - Exam Lungs: bilateral: normal Chest: Normal S1, Normal S2 Extremities: Present: normal Abdomen: Present: normal appearance, soft Uterus: Present: firm Uterus Position: 2 Fingers Below Umbilicus, Midline - Labs Labs: Laboratory Results - last 24 hr 03/02/18 03/02/18 03/02/18 10:46 12:38 15:32 WBC 11.1 RBC 3.98 Hgb 12.8 Hct 38.0 MCV 95.5 MCH 32.2 MCHC 33.7 RDW 12.1 Plt Count 190 MPV 10.5 Immature Gran % 0.8 Seg Neutrophils % 73.7 Lymphocytes % 19.6 Monocytes % 5.1 Eosinophils % 0.5 Basophils % 0.3 Neutrophils # 8.2 Lymphocytes # 2.2 Monocytes # 0.6 Eosinophils # 0.1 Basophils # 0.0 Urine Opiates Screen Negative Ur Barbiturates Screen Negative Ur Phencyclidine Scrn Negative Ur Amphetamines Screen Negative U Benzodiazepines Scrn Negative Urine Cocaine Screen Negative U Marijuana (THC) Screen Negative Ur Drug Screen Interp See Below Hep Bs Antigen Nonreactive Baby's Blood Type Mother's Blood Type Rhogam Indicated 03/02/18 20:18 WBC RBC Hgb Hct MCV MCH MCHC RDW Plt Count MPV Immature Gran % Seg Neutrophils % Lymphocytes % Monocytes % Eosinophils % Basophils % Neutrophils # Lymphocytes # Monocytes # Eosinophils # Basophils # Urine Opiates Screen Ur Barbiturates Screen Ur Phencyclidine Scrn Ur Amphetamines Screen U Benzodiazepines Scrn Urine Cocaine Screen U Marijuana (THC) Screen Ur Drug Screen Interp Hep Bs Antigen Baby's Blood Type A RH NEGATIVE Mother's Blood Type A RH NEGATIVE Rhogam Indicated NO
[2018-03-03] MEDS: Prenatal Vit/FA 1 EACH TABLET PO SCH (08:52)
[2018-03-03] MEDS: Ibuprofen 600 MG TABLET PO PRN (16:46)
[2018-03-04 07:52] VITALS: BP 97/61
[2018-03-04] MEDS: Prenatal Vit/FA 1 EACH TABLET PO SCH (08:22)
[2018-03-04] MEDS: Benzocaine/Menthol 56 GM AEROSOL SPRAY TP PRN (08:23)
--- NOTE | 2018-03-04 08:58 | Discharge Summary ---
Date of Encounter: 03/04/18 Time of Encounter: 08:53 - Discharge Diagnosis (1) Second degree perineal laceration during delivery Priority: Secondary Status: Acute Comments: Patient states Motrin is controlling her pain. Ice packs as needed Witch benjie pads and Dermoplast spray as needed. (2) Vaginal delivery Priority: Primary Status: Acute Comments: Meeting day 2 milestones. Pain well-controlled with Motrin. Tolerating regular diet, voiding without difficulty, positive bowel movement since delivery. Discharge home today. (3) Type A blood, Rh negative Priority: Secondary Status: Acute Comments: a negative no rhogam indicated. (4) Yeast vaginitis Priority: Secondary Status: Acute Comments: Patient was diagnosed with yeast infection on 02/27. Was unable to complete treatment due to labor induction. Requesting Diflucan be sent to her pharmacy - Discharge Medications Prescriptions: Ibuprofen [Motrin] 600 mg PO Q6HR PRN #60 tablet PRN Reason: Cramping Fluconazole [Diflucan] 150 mg PO ONCE #1 tablet Home Medications: Sertraline [Zoloft] 50 mg PO DAILY 03/02/18 [History] Acetaminophen [Tylenol] 650 mg PO Q6HR PRN tablet 03/04/18 [Rx] Benzocaine/Menthol [place] [Dermoplast [place]] 1 appl TP QID PRN aerosol 03/04/18 [Rx] Docusate [Colace] 100 mg PO BID capsule 03/04/18 [Rx] Fluconazole [Diflucan] 150 mg PO ONCE #1 tablet 03/04/18 [Rx] Ibuprofen [Motrin] 600 mg PO Q6HR PRN #60 tablet 03/04/18 [Rx] Vit/FA 1 each PO DAILY tablet 03/04/18 [Rx] Allergies/Adverse Reactions: Allergy/AdvReac Type Severity Reaction Status Date / Time No Known Allergies Allergy Verified 07/21/16 06:18 Data Procedures and tests throughout hospitalization: Laboratory Tests 03/02/18 03/02/18 03/02/18 10:46 12:38 15:32 WBC 11.1 RBC 3.98 Hgb 12.8 Hct 38.0 MCV 95.5 MCH 32.2 MCHC 33.7 RDW 12.1 Plt Count 190 MPV 10.5 Immature Gran % 0.8 Seg Neutrophils % 73.7 Lymphocytes % 19.6 Monocytes % 5.1 Eosinophils % 0.5 Basophils % 0.3 Neutrophils # 8.2 Lymphocytes # 2.2 Monocytes # 0.6 Eosinophils # 0.1 Basophils # 0.0 Urine Opiates Screen Negative Ur Barbiturates Screen Negative Ur Phencyclidine Scrn Negative Ur Amphetamines Screen Negative U Benzodiazepines Scrn Negative Urine Cocaine Screen Negative U Marijuana (THC) Screen Negative Ur Drug Screen Interp See Below Hep Bs Antigen Nonreactive Baby's Blood Type Mother's Blood Type Rhogam Indicated 03/02/18 20:18 WBC RBC Hgb Hct MCV MCH MCHC RDW Plt Count MPV Immature Gran % Seg Neutrophils % Lymphocytes % Monocytes % Eosinophils % Basophils % Neutrophils # Lymphocytes # Monocytes # Eosinophils # Basophils # Urine Opiates Screen Ur Barbiturates Screen Ur Phencyclidine Scrn Ur Amphetamines Screen U Benzodiazepines Scrn Urine Cocaine Screen U Marijuana (THC) Screen Ur Drug Screen Interp Hep Bs Antigen Baby's Blood Type A RH NEGATIVE Mother's Blood Type A RH NEGATIVE Rhogam Indicated NO Date of admission: 03/02/18 09:41 Primary care physician: PCP NONE Consults: 03/02/18 22:20 Consult to Patient Registration Manager [CONS] Routine Comment: Vaginal delivery, consult needed Discharging clinician: Ilsa Huston Anticipated date of discharge: 03/04/18 - Patient Status Disposition: Home, Self-Care Condition: Good Functional capacity at discharge: independent ambulation Overall status at discharge: patient is progressing back to baseline - Discharge Instructions Follow Up With: NONE,PCP [Primary Care Provider] - - Diet and Activity Activity: resume usual activities as tolerated Diet: regular diet Hospital Course Reason for admission: induction of labor Delivery: Episiotomy: none Laceration: 2nd degree Other procedures: none complications: none Discharge diagnosis: IUP at term delivered baby: female Hospital course: Patient meeting day 2 milestones. Tolerating regular diet, pain well-controlled with Motrin, positive bowel movement, voiding without difficulty. Requesting discharge home today. To follow-up in 4 weeks. Delivery Date: 03/02/18 Provider: Eliezer Abrams Intrapartum events: none Delivery induction: AROM Delivery augmentation: pitocin - Infant (s) Infant A Delivery Date: 03/02/18 Delivery Time: 19:41 Presentation: vertex Position: THOM Gender: Female Viability: Viable Weight Gram: 3785 kg at 1 minute: 8 at 5 mins: 9 Shoulder Dystocia: not encountered Specimens collected: cord blood Placenta: spontaneous Cord: 3 umbilical vessels - Repair Laceration Description: Perineal - 2nd Degree - Complications Delivery complications: none - Disposition Mom disposition: stable in LDR [place] disposition: stable in LDR Time Attestation: Total time spent providing and/or coordinating discharge services: Time Spent: Less than 30 minutes Exam - Constitutional Vitals: Temp Pulse Resp BP Pulse Ox 98 F 64 14 97/61 100 03/04/18 07:50 03/04/18 07:50 03/04/18 07:50 03/04/18 07:50 03/04/18 07:50 General appearance IM: A&O X 3, pleasant, no acute distress, answers questions appropriately - Respiratory Respiratory exam: Present: CTAB - Cardiovascular Cardiovascular exam IM: Present: RRR, +S1, +S2 - GI/Abdominal GI/Abdominal exam IM: normal bowel sounds - Rectal Rectal exam: deferred - Uterine Tone: Firm Uterus Position: 1 Finger Below Umbilicus - Extremities Exam Extremities exam IM: Present: full ROM, normal capillary refill, normal inspection - Neurological Exam Neurological exam: alert, normal gait, oriented X3
== END 2018-03-04 13:30 | disposition home or self-care (01) | DRG 560 ==
LOC: 1NENULAB 09:41 → 1NENUOBS 22:18
PROVIDERS: ADMIT Obstetrics & Gynecology; ATTEND Obstetrics & Gynecology

== ENCOUNTER → 2020-04-16 17:45 | Observation (INO) ==
[2020-04-16 17:15] LABS: Bilirubin,Urine Negative (Negative); Blood,Urine Negative (Negative); Clarity,Urine Clear (Clear); Color,Urine Colorless (Yellow); Glucose,Urine (UA) Normal (Normal); Ketones,Urine Negative (Negative); Leukocyte Esterase,Urine Negative (Negative); Nitrite,Urine Negative (Negative); PH,Urine 6.5 pH Units (5.0-8.0); Protein,Urine Negative (Neg-Trace); Specific Gravity,Urine 1.006 (1.010-1.025); Urobilinogen,Urine Normal (Normal)
[2020-04-16 18:08] LABS: Candida DNA Not Detected (Not Detect); Gardnerella DNA Not Detected (Not Detect); Trichomonas DNA Not Detected (Not Detect)
== END | disposition home or self-care (01) ==
LOC: 1NENULAB
PROVIDERS: ADMIT Advanced Practice Midwife; ATTEND Advanced Practice Midwife

== ENCOUNTER → 2020-04-30 03:32 | Observation (INO) | END | disposition home or self-care (01) | LOC: 1NENULAB | PROVIDERS: ADMIT Registered Nurse; ATTEND Registered Nurse ==

== ENCOUNTER 2020-05-30 06:14 | Inpatient (IN) ==
[2020-05-30] MEDS ORDERED: miSOPROStoL 25 MCG TABLET PO PRN (06:26)
[2020-05-30] MEDS ORDERED: Famotidine 20 MG/2 ML VIAL IVP PRN (06:26)
[2020-05-30] MEDS ORDERED: Lidocaine 1% 20 ML MDV INFILT PRN (06:26)
[2020-05-30] MEDS ORDERED: Metoclopramide 10 MG/2 ML VIAL IVP PRN (06:26)
[2020-05-30] MEDS ORDERED: Naloxone 0.4 MG/ML INJ IVP PRN (06:26)
[2020-05-30] MEDS ORDERED: *HR* Nalbuphine 10 MG/ML AMPUL IV PRN (06:26)
[2020-05-30] MEDS ORDERED: Ringers Solution, Lactated 1,000 ML IVC SCH (06:30)
[2020-05-30 07:33] LABS: Basophils % 0.3 %; Eosinophils % 0.3 %; Hematocrit 40.2 % (35.3-44.9); Hemoglobin 13.5 g/dL (11.5-15.4); Immature Granulocytes % 1.1 % (0-4); Lymphocytes # 2.4 K/mcL (0.6-4.6); Lymphocytes % 26.2 %; Mean Corpuscular HGB Conc 33.6 g/dL (31.6-35.5); Mean Corpuscular Hemoglobin 33.6 pg (28.0-33.3); Mean Platelet Volume 10.3 fL (9.4-12.4); Monocytes # 0.7 K/mcL (0.0-1.3); Monocytes % 7.2 %; Neutrophils # 5.9 K/mcL (1.6-8.9); Platelet Count 186 K/mcL (140-400); Red Blood Count 4.02 M/mcL (3.82-4.97); Red Cell Distribution Width 12.6 % (11.5-14.5); Segmented Neutrophils % 64.9 %; White Blood Count 9.1 K/mcL (4.3-11.1)
[2020-05-30 11:03] LABS: Amphetamine Screen,Urine Negative ng/mL (Cutoff=1000); Barbiturate Screen,Urine Negative ng/mL (Cutoff=200); Benzodiazepines Screen,Urine Negative ng/mL (Cutoff=200); Cannabinoid Screen,Urine Negative ng/mL (Cutoff = 50); Cocaine Screen,Urine Negative ng/mL (Cutoff= 300); Opiate Screen,Urine Negative ng/mL (Cutoff=300); Phencyclidine Screen,Urine Negative ng/mL (Cutoff=25)
[2020-05-30 11:07] LABS: Adenovirus Not Detected (Not Detect); Coronavirus 229E Not Detected (Not Detect); Coronavirus HKU1 Not Detected (Not Detect); Coronavirus NL63 Not Detected (Not Detect); Coronavirus OC43 Not Detected (Not Detect); Human Metapneumovirus Not Detected (Not Detect); Human Rhinovirus/Enterovirus Not Detected (Not Detect); SARS-CoV-2 Not Detected (Not Detect)
[2020-05-30 11:08] LABS: Bordetella Pertussis Not Detected (Not Detect); Chlamydophila pneumoniae Not Detected (Not Detect); Influenza A Subtype 2009 H1 Not Detected (Not Detect); Influenza B Not Detected (Not Detect); Mycoplasma pneumoniae Not Detected (Not Detect); Parainfluenza Virus 1 Not Detected (Not Detect); Parainfluenza Virus 2 Not Detected (Not Detect); Parainfluenza Virus 3 Not Detected (Not Detect); Parainfluenza Virus 4 Not Detected (Not Detect); Respiratory Syncytial Virus Not Detected (Not Detect)
[2020-05-30] MEDS ORDERED: EPHEDrine 50 MG/ML VIAL IVP PRN (11:43)
[2020-05-30] MEDS ORDERED: Epidural Premix (fent/bupiv) 110 ML EP SCH (11:45)
[2020-05-30] MEDS ORDERED: Epidural Premix (fent/bupiv) 110 ML EP ONE (11:49)
[2020-05-30] MEDS ORDERED: Oxytocin 20 units/ LR 1000 mL 20 UNIT/1,000 ML BAG IVC SCH ×2 (13:00→22:34)
[2020-05-30] MEDS ORDERED: Ropivacaine/PF 0.2% 20 ML VIAL ONE (17:55)
[2020-05-30] MEDS ORDERED: Acetaminophen 325 MG TABLET PO PRN (22:34)
[2020-05-30] MEDS ORDERED: Lanolin 7 G OINT...G. TP PRN (22:34)
[2020-05-30] MEDS ORDERED: Rho Immune Globulin 1,500 UNIT SYRINGE IM PRN (22:34)
[2020-05-30] MEDS ORDERED: Benzocaine/Menthol 56 GM AEROSOL SPRAY TP PRN (22:34)
[2020-05-30] MEDS: Ibuprofen 600 MG TABLET PO PRN (23:27)
[2020-05-31] MEDS: Ibuprofen 600 MG TABLET PO PRN (08:01)
[2020-05-31] MEDS ORDERED: Prenatal Vit/FA 1 EACH TABLET PO SCH (09:00)
[2020-05-31 19:28] VITALS: BP 109/67
== END 2020-05-31 19:25 | disposition home or self-care (01) | DRG 560 ==
LOC: 1NENULAB 06:14 → 1NENUOBS 22:49
PROVIDERS: ADMIT Advanced Practice Midwife; ATTEND Advanced Practice Midwife